=== PATIENT | male | born 1955 | race Caucasian/White ===

== ENCOUNTER 2021-05-11 18:03 | Emergency (ER) | payer OTHER ==
--- OUTSIDE RECORDS SUMMARY | 2021-05-11 18:07 | XMS REPORT | Continuity of Care Document ---
:1955 Author Organization [facility] t Address [address] [place] [address] [address] [place] [address] Care Team Providers Name Role Phone Only, Test Attending Clinician Unavailable Problems This patient has no known problems. Allergies, Adverse Reactions, Alerts This patient has no known allergies or adverse reactions. Medications This patient has no known medications. Procedures This patient has no known procedures. Encounters Start End Encounter Admission Attending Care Care Encounter Source Date/Time Date/Time Type Type Clinicians Facility Department ID 2020-04-22 2020-04-22 Laboratory Only, [facility] [id number] 15:15:42 15:30:42 Only Test [place] [id number] [place] [id number] [place] [id number] Results This patient has no known results.
[2021-05-11 19:07] LABS: Basophils % 0.8 % (0-1.3); Hematocrit 40.4 % (39.6-49.0); MPV 7.7 fL (7.6-11.3); Protime INR 1.01; RBC Red Blood Cell Count 4.53 M/uL (4.33-5.43)
--- NOTE | 2021-05-11 19:08 | RAD REPORT ---
EXAM DESCRIPTION: RAD - Chest Single View - 05/11/2021 6:58 pm CLINICAL HISTORY: R/o dissection, chest pain COMPARISON: None TECHNIQUE: AP portable chest image was obtained 05/11/2021 6:58 pm . FINDINGS: No mass or consolidation. No pulmonary edema or volume overload. Trace amount of stranding in each lung base could be scarring or atelectasis. Lung volumes are low. An acute infiltrate is unl ikely. Heart and vasculature are normal. No measurable pleural effusion and no pneumothorax. No acute bony abnormality seen. Aorta is normal size. No dilation or tortuosity seen. IMPRESSION: No acute cardiopulmonary process.
[2021-05-11 19:25] LABS: ALT/SGPT 39 U/L (12-78); AST/SGOT 19 U/L (15-37); Albumin 3.5 g/dL (3.4-5.0); Alkaline Phosphatase 70 U/L (45-117); BUN Blood Urea Nitrogen 13 mg/dL (7-18); Bicarbonate 27 mmol/L (21-32); Bilirubin Direct < 0.1 mg/dL (0-0.2); Bilirubin Total 0.3 mg/dL (0.2-1.0); Glucose Level 99 mg/dL (74-106); Magnesium 2.1 mg/dL (1.8-2.4); NT PRO-BNP 23 pg/mL (<125); Potassium 4.1 mmol/L (3.5-5.1); Protein, Total 6.7 g/dL (6.4-8.2); Sodium Level 143 mmol/L (136-145); Troponin (Emerg Dept Use Only) < 0.02 ng/mL (0.0-0.045)
--- NOTE | 2021-05-11 19:36 | RAD REPORT ---
EXAM DESCRIPTION: CT - Head Brain Wo Cont - 05/11/2021 7:19 pm CLINICAL HISTORY: HEADACHE COMPARISON: Neck Angio dated 05/11/2021; Head angio dated 05/11/2021 TECHNIQUE: Axial 5 mm thick images of the head were obtained without IV contrast. All CT scans are performed using dose optimization technique as appropriate and may include automated exposure control or mA/KV adjustment according to patient size. FINDINGS: No intracranial hemorrhage, mass, edema or shift of mid-line structures. No acute infarcti on changes seen. No significant atrophy or chronic ischemic changes evident. Ventricles are normal. Mastoid air cells and visualized portions of the paranasal sinuses are clear except for mild mucosal thickening in the ethmoid air cells. No acute bony findings. IMPRESSION: Negative non-contrast CT head examination for acute or significant finding.
--- NOTE | 2021-05-11 19:49 | RAD REPORT ---
EXAM DESCRIPTION: CT - Neck Angio - 05/11/2021 7:19 pm CLINICAL HISTORY: r/o dissection of R carotid TECHNIQUE: During dynamic enhancement using nonionic IV contrast, axial 1 mm thick images of the nec k were obtained. Sagittal and axial reconstruction images were generated using MIP technique and revi ewed. All CT scans are performed using dose optimization technique as appropriate and may include automated exposure control or mA/KV adjustment according to patient size. COMPARISON: CT head same date FINDINGS: No aneurysm or vascular malformation identified. Aortic arch is 3 vessel configuration. Innominate artery is tortuous. No subclavian artery abnormalit y seen. Bilateral common carotid arteries are unremarkable. Left internal carotid artery to the skull base shows no suspicious findings. The distal 3 cm of the right internal carotid artery shows a subs tantial reduction in luminal diameter. Margins are slightly irregular. Diameter is reduced by 50%. No intimal flap identified. Right external carotid artery is unremarkable. Left vertebral artery is dominant and shows no suspicious finding. Right vertebral artery is much sma ller than the left along its entire course. An acute right vertebral artery finding is not identified . Right vertebral artery appears to terminate at the posteroinferior cerebellar artery. IMPRESSION: Abrupt 50% luminal narrowing involving the distal 3 cm of the right internal carotid ar gareth near the skullbase. Dissection is the primary consideration. Atherosclerotic narrowing is a lesser consideration. Patient has no measurable cervical arterial tree calcifications or other findings of significant atheroscler otic disease.
--- NOTE | 2021-05-11 19:51 | RAD REPORT ---
EXAM DESCRIPTION: CT - Head angio - 05/11/2021 7:19 pm CLINICAL HISTORY: r/o dissectionheadache TECHNIQUE: During dynamic enhancement using nonionic IV contrast, axial 1 millimeter thick images of the head were obtained. Sagittal and axial reconstruction images were generated using MIP technique and reviewed. All CT scans are performed using dose optimization technique as appropriate and may include automated exposure control or mA/KV adjustment according to patient size. COMPARISON: CT head same date, CT angio neck same date FINDINGS: No aneurysm or vascular malformation identified. Major venous sinuses are patent. From the skullbase to the supraclinoid termination the internal carotid arteries show no dissection o r stenosis changes. Very minimal atherosclerotic calcification present in the cavernous internal rodriguez tid arteries. No named branch occlusion, stenosis or vasculitis findings. No basilar artery abnormali ty seen. Patient has a very large left posterior communicating artery is a normal variant. This suppl ies the left posterior cerebral artery distribution. The P1 segment of the left posterior cerebral ar gareth is not identifiable as part of the anatomic variant. IMPRESSION: Negative CT angio head examination for acute or significant finding.
[2021-05-11 20:51] LABS: Blood Morphology Comment NOT SEEN (NOT SEEN); Platelet Estimate ADEQ; White Blood Cell Scan OK (OK)
--- NOTE | 2021-05-11 22:09 | EDPHYS ---
Physician Documentation [facility] Name: Yakov Pickens Age: 66 yrs Sex: Male : 1955 Arrival Date: 05/11/2021 Time: 18:04 Bed 24 Private MD: ED Physician Boubacar Dye HPI: 05/11 21:19 This 66 yrs old Male presents to ER via Ambulatory with complaints of sp3 Abnormal CT report. 21:19 66-year-old male with no known past medical history but who is getting worked up for sp3 lymphoma at [facility] for abnormal WBCs presents today for abnormal outpatient CT concerning for a possible carotid artery dissection on the right side. Patient was getting "a whole body CT" when he was told that he needed to seek further medical attention at an emergency department for his findings. Patient currently has no symptoms including neck pain, neuro symptoms, weakness, sensory loss, speech problems, memory problems, or any other neurological symptoms. Patient does complain of a mild headache. On ROS patient denies chest pain, back pain, shortness of breath, fever, URI symptoms, irregular heartbeat, palpitations, abdominal pain, nausea, vomiting, diarrhea, any peripheral neurological complaints, or any other ROS at this time.. Historical: - Allergies: 18:41 "old pain medication"; ss - PMHx: 18:42 RA; ss - Immunization history:: Client reports having NOT received the Covid vaccine. - Social history:: Smoking status: Patient denies any tobacco usage or history of. ROS: 21:22 Constitutional: Negative for fever, chills, and weight loss, Eyes: Negative for injury, sp3 pain, redness, and discharge, ENT: Negative for injury, pain, and discharge, Neck: Negative for injury, pain, and swelling, Cardiovascular: Negative for chest pain, palpitations, and edema, Respiratory: Negative for shortness of breath, cough, wheezing, and pleuritic chest pain, Abdomen/GI: Negative for abdominal pain, nausea, vomiting, diarrhea, and constipation, MS/Extremity: Negative for injury and deformity, Skin: Negative for injury, rash, and discoloration, Psych: Negative for depression, anxiety, suicide ideation, homicidal ideation, and hallucinations, Allergy/Immunology: Negative for hives, rash, and allergies, Endocrine: Negative for neck swelling, polydipsia, polyuria, polyphagia, and marked weight changes. 21:22 Neuro: Positive for headache, Negative for altered mental status, dizziness, gait disturbance, hearing loss, loss of consciousness, numbness, seizure activity, speech changes, syncope, near syncope, tingling, tinnitus, tremor, visual changes, weakness. Exam: 21:22 Constitutional: This is a well developed, well nourished patient who is awake, alert, sp3 and in no acute distress. Head/Face: Normocephalic, atraumatic. Eyes: Pupils equal round and reactive to light, extra-ocular motions intact. Lids and lashes normal. Conjunctiva and sclera are non-icteric and not injected. Cornea within normal limits. Periorbital areas with no swelling, redness, or edema. ENT: Nares patent. No nasal discharge, no septal abnormalities noted. External auditory canals are clear. Oropharynx with no redness, swelling, or masses, exudates, or evidence of obstruction, uvula midline. Mucous membranes moist. Neck: Trachea midline, no thyromegaly or masses palpated, and no cervical lymphadenopathy. Supple, full range of motion without nuchal rigidity, or vertebral point tenderness. No Meningismus. Chest/axilla: Normal chest wall appearance and motion. Nontender with no deformity. No lesions are appreciated. Cardiovascular: Regular rate and rhythm with a normal S1 and S2. No gallops, murmurs, or rubs. Normal PMI, no JVD. No pulse deficits. Respiratory: Lungs have equal breath sounds bilaterally, clear to auscultation and percussion. No rales, rhonchi or wheezes noted. No increased work of breathing, no retractions or nasal flaring. Abdomen/GI: Soft, non-tender, with normal bowel sounds. No distension or tympany. No guarding or rebound. No evidence of tenderness throughout. Back: No spinal tenderness. No costovertebral tenderness. Full range of motion. Skin: Warm, dry with normal turgor. Normal color with no rashes, no lesions, and no evidence of cellulitis. 21:22 Constitutional: The patient appears in no acute distress. 21:22 Head/face: Neck not aggressively palpated. No bruits noted on the right carotid area. Patient told to hold head still if possible until results are found.. Vital Signs: 18:38 BP 143 / 80; Pulse 70; Resp 16; Temp 98.0(TE); Pulse Ox 96% on R/A; Weight 86.18 kg; ss Height 5 ft. 7 in. (170.18 cm); Pain 0/10; 21:29 BP 135 / 89; Pulse 68; Resp 18; Pulse Ox 99% ; em 22:22 BP 130 / 86; Pulse 62; Resp 18; Pulse Ox 99% ; zb 18:38 Body Mass Index 29.76 (86.18 kg, 170.18 cm) ss MDM: 21:08 Patient medically screened. sp3 21:23 ED course: Laboratory values reviewed including CBC, chemistries, troponin, coagulation sp3 studies. All are within normal limits demonstrate no significant abnormality. Radiology results also reviewed. CT scan of the head noncontrast is normal. CT angiogram of the head is also normal. However CT angiogram of the neck demonstrates an abrupt 50% narrowing of the distal 3 cm of the carotid artery which is concerning for aortic dissection. There are no atherosclerotic plaques or calcifications noted along the carotid artery. At this point we will consult vascular surgery at [facility] for further planning and work-up/treatment.. 22:05 Data reviewed: vital signs, nurses notes, lab test result(s), EKG, radiologic studies. sp3 ED course: Demonstrates normal sinus rhythm with no acute abnormalities.. ED course: Discussed case with Dr. Agusto Humphreys vascular surgery at [facility]. He graciously consulted on the case via telephone and will see patient in his clinic. Will discharge patient on 325 mg of aspirin this patient has no risk factors for bleeding and has no TIA symptoms or neurological deficits. Patient will be educated on signs symptoms to return and will be urged to follow-up at the first available appointment. Full contact information for vascular surgery clinic has been given to the patient.. 05/11 18:43 Order name: Basic Metabolic Panel; Complete Time: : ss 05/11 18:43 Order name: CBC with Diff; Complete Time: :05/11 18:43 Order name: LFT's; Complete Time: :05/11 18:43 Order name: Magnesium; Complete Time: :05/11 18:43 Order name: NT PRO-BNP; Complete Time: 21:08 05/11 18:43 Order name: PT-INR; Complete Time: 21:08 05/11 18:43 Order name: Troponin (emerg Dept Use Only); Complete Time: 21:08 05/11 18:43 Order name: XRAY Chest (1 view); Complete Time: 21:08 ss 05/11 18:43 Order name: EKG; Complete Time: 18:44 ss 05/11 18:45 Order name: CT Head Angio; Complete Time: 21:08 05/11 18:45 Order name: CT Neck Angio; Complete Time: 21:08 ss 05/11 19:10 Order name: Head Brain Wo Cont CT; Complete Time: 21:08 em 05/11 20:51 Order name: CBC Smear Scan; Complete Time: 21:08 EDSD 05/11 18:43 Order name: Cardiac monitoring; Complete Time: 21:28 ss 05/11 18:43 Order name: EKG - Nurse/Tech; Complete Time: 21:28 05/11 18:43 Order name: IV Saline Lock; Complete Time: 18:45 05/11 18:43 Order name: Labs collected and sent; Complete Time: 18:45 ss 05/11 18:43 Order name: O2 Per Protocol; Complete Time: 18:45 05/11 18:43 Order name: O2 Sat Monitoring; Complete Time: 21:28 ss Administered Medications: 22:17 CANCELLED (Inappropriate at this time; pt had Aspirin earlierr): Aspirin 325 mg PO once lh3 Disposition Summary: 05/11/21 22:08 Discharge Ordered Location: Home sp3 Condition: Stable sp3 Diagnosis - Dissection of carotid artery 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 Followup: sp3 - With: Private Physician - When: - Reason: Re-evaluation by your physician Discharge Instructions: - Discharge Summary Sheet sp3 - Carotid Artery Dissection sp3 Forms: - Medication Reconciliation Form sp3 - Thank You Letter sp3 - Antibiotic Education sp3 - Prescription Opioid Use sp3 Signatures: Dispatcher [employer] EDSD Racheal Matos, RN RN Boubacar Dye sp3 Johanne Aly RN 3 Corrections: (The following items were deleted from the chart) 18:42 18:41 Allergies: No Known Allergies; [facility] 18:42 18:41 PMHx: None; ss ss 21:22 21:19 66-year-old male with no known past medical history but who is getting worked up sp3 for lymphoma at [facility]. sp3 22:17 22:07 Aspirin 325 mg PO once ordered. sp3 lh3
--- NOTE | 2021-05-11 22:09 | ER ---
Nurse's Notes [facility] Name: Yakov Pickens Age: 66 yrs Sex: Male : 1955 Arrival Date: 05/11/2021 Time: 18:04 Bed 24 Private MD: Diagnosis: Dissection of carotid artery Presentation: 05/11 18:38 Chief complaint: Patient states: Outpatient CT of head obtained yesterday and was told ss to come to the ER for an angiogram of his R carotid artery as he was told he may be having a dissection. Denies pain at this time. Coronavirus screen: Client denies travel out of the [place] in the last 14 days. Ebola Screen: Patient denies exposure to infectious person. Patient denies travel to an Ebola-affected area in the 21 days before illness onset. Initial Sepsis Screen: Does the patient meet any 2 criteria? No. Patient's initial sepsis screen is negative. Does the patient have a suspected source of infection? No. Patient's initial sepsis screen is negative. Risk Assessment: Do you want to hurt yourself or someone else? Patient reports no desire to harm self or others. Onset of symptoms is unknown. 18:38 Method Of Arrival: Ambulatory ss 18:38 Acuity: ANJALI 3 ss Triage Assessment: 21:29 General: Appears in no apparent distress. Behavior is calm, cooperative, appropriate em for age. Pain: Denies pain. Historical: - Allergies: 18:41 "old pain medication"; ss - PMHx: 18:42 RA; ss - Immunization history:: Client reports having NOT received the Covid vaccine. - Social history:: Smoking status: Patient denies any tobacco usage or history of. Screenin:29 Abuse screen: Denies threats or abuse. Nutritional screening: No deficits noted. em Tuberculosis screening: No symptoms or risk factors identified. Fall Risk IV access (20 points). Assessment: 21:29 Reassessment: Patient appears in no apparent distress at this time. General: Appears in em no apparent distress. Behavior is calm, cooperative, appropriate for age. Pain: Denies pain. Vital Signs: 18:38 BP 143 / 80; Pulse 70; Resp 16; Temp 98.0(TE); Pulse Ox 96% on R/A; Weight 86.18 kg; ss Height 5 ft. 7 in. (170.18 cm); Pain 0/10; 21:29 BP 135 / 89; Pulse 68; Resp 18; Pulse Ox 99% ; em 22:22 BP 130 / 86; Pulse 62; Resp 18; Pulse Ox 99% ; zb 18:38 Body Mass Index 29.76 (86.18 kg, 170.18 cm) ED Course: 18:04 Patient arrived in ED. ds1 18:41 Triage completed. ss 18:42 Arm band placed on right wrist. 18:43 Inserted saline lock: 18 gauge in right antecubital area, using aseptic technique. Blood collected. 18:58 XRAY Chest (1 view) In Process Unspecified. EDMS 19:19 CT Head Angio In Process Unspecified. EDMS 19:19 CT Neck Angio In Process Unspecified. EDMS 19:20 Head Brain Wo Cont CT In Process Unspecified. EDMS 20:52 Johanne Aly, CLEO is Primary Nurse. lh3 20:58 Boubacar Dye is Attending Physician. sp3 21:[address] [facility] in regards to being connected with the vascular tt3 surgeon. Was provided with a number for the answering service. 21:22 Contacted the answering service for [facility] vascular surgeon. Was informed they tt3 would page Dr. Humphreys and have him call to speak with Dr. Dye. 21:29 EKG completed in triage. Results shown to MD. em 21:29 Patient has correct armband on for positive identification. Bed in low position. Call em light in reach. Side rails up X 1. 21:29 No provider procedures requiring assistance completed. IV is patent, is intact, Flushed em right antecubital. 22:18 IV discontinued, bleeding controlled. lh3 Administered Medications: 22:17 CANCELLED (Inappropriate at this time; pt had Aspirin earlierr): Aspirin 325 mg PO once lh3 Outcome: 22:08 Discharge ordered by MD. sp3 22:18 Discharged to home ambulatory. lh3 22:18 Condition: stable 22:18 Discharge instructions given to patient, Instructed on discharge instructions, safety practices, Demonstrated understanding of instructions, follow-up care. 22:23 Patient left the ED. zb Signatures: Dispatcher [employer] Jony Washington, CLEO GALLO Mary Hood ds1 Racheal Matos RN RN Bassam Macdonald tt3 Breanna Serra RN RN torinb Boubacar Dye sp3 Johanne Aly RN RN lh3 Corrections: (The following items were deleted from the chart) Allergies: No Known Allergies; ss PMHx: None; [facility]
[2021-05-11 22:30] VITALS: TEMP 98
[2021-05-11 22:31] VITALS: O2SAT 99
[2021-05-11 22:32] VITALS: BP 130/86
--- NOTE | 2021-05-12 08:30 | EKG ---
Test Date: 2021-05-11 Test Time: 21:21:54 Assistant Grocery: WESLEY MEASUREMENT RESULTS: Intervals: Rate: 62 IL: 180 QRSD: 86 QT: 398 QTc: 403 [place]: P: 65 IL: 180 QRS: 62 T: 31 INTERPRETIVE STATEMENTS: Normal sinus rhythm Normal ECG Compared to ECG 08/29/2005 09:30:00 Sinus bradycardia no longer present Electronically Signed On 05-12-21 08:29:26 CDT by Jg Stern
== END 2021-05-11 22:23 | disposition home or self-care (01) ==
LOC: ER 18:03
DX: I77.71 Dissection of carotid artery (principal)
CPT/HCPCS: 93005; 85025; 80048; 36415; 83735; 85610; 82565; 80076; 84484; 83880; 70450; 70496; 70498; 71045; 99283; Q9967